=== PATIENT | male | born 1955 | race Caucasian/White ===

== ENCOUNTER → 2020-06-10 09:11 | Outpatient (CLI) | payer MEDICARE, OTHER, SELFPAY ==
--- NOTE | 2020-06-10 09:19 | DI.RAD.S_ITS ---
PROCEDURE: XR LUMBAR SPINE MIN 4V INDICATIONS: Hip pain TECHNIQUE: 5 views of the lumbar spine were acquired. COMPARISON: [facility], CT, CT ABDOMEN PELVIS WITH CONTRAST, 04/28/2017, 8:18. FINDINGS: Bones: Mild T12 anterior wedging appearance which is chronic. The remaining vertebral body heights preserved. Multilevel degenerative endplate sclerosis and spurring. Diffuse facet arthropathy. Grade 1 retrolisthesis of L1 on L2 and L2 on L3. There is mild narrowing of the lower thoracic disc spaces. The lumbar disc spaces appear grossly preserved except for mild narrowing at L1-L2. Soft tissues: Overlying bowel gas pattern is normal. No suspicious soft tissue calcifications. Oblique images: No pars defects. IMPRESSION: Mild lumbar spondylosis and facet arthropathy Multilevel spondylolisthesis as above. Dictated by: King Kerns M.D. on 06/10/2020 at 9:58 Approved by: King Kerns M.D. on 06/10/2020 at 10:00
--- NOTE | 2020-06-10 09:19 | DI.RAD.S_ITS ---
PROCEDURE: XR HIP W PEL IF DONE LT MIN 4V INDICATIONS: Hip pain TECHNIQUE: AP pelvis with lateral view(s) of the left and right hip(s). COMPARISON: None. FINDINGS: Bones: No fracture. Scattered degenerative subchondral sclerosis and spurring. Mild bilateral hip joint degeneration. Lower lumbar spondylosis. Soft tissues: The visualized bowel gas pattern is normal. No suspicious soft tissue calcifications. IMPRESSION: Mild bilateral hip joint degeneration. Dictated by: King Kerns M.D. on 06/10/2020 at 9:55 Approved by: King Kerns M.D. on 06/10/2020 at 9:57
== END ==
PROVIDERS: Referring Provider Physical Medicine & Rehabilitation; Visit Provider Physical Medicine & Rehabilitation
DX: M47.26 Other spondylosis with radiculopathy, lumbar region (principal); M43.16 Spondylolisthesis, lumbar region; M51.26 Other intervertebral disc displacement, lumbar region; G62.9 Polyneuropathy, unspecified; I72.2 Aneurysm of renal artery
CPT/HCPCS: 72110; 73522; 99213

== ENCOUNTER → 2020-06-25 09:05 | Outpatient (CLI) | payer MEDICARE, OTHER, SELFPAY ==
--- NOTE | 2020-06-25 09:07 | DI.MRI.S_ITS ---
PROCEDURE: MR LUMBAR SPINE WO CON INDICATIONS: right L3/4 radicu TECHNIQUE: Noncontrast sagittal T1 spin echo and T2 fast echo, sagittal STIR, axial T1 and T2 fast spin echo through the lumbar spine. In cases with scoliosis, additional coronal T2 fast spin echo may be performed. COMPARISON: [facility], CR, XR LUMBAR SPINE MIN 4V, 06/10/2020, 9:23. [facility], CT, CT ABDOMEN PELVIS WITH CONTRAST, 05/09/2020, 9:54. FINDINGS: Image quality: This examination is limited by involuntary motion artifact. Alignment and Curvature: There is normal bony alignment. Bone Marrow: Marrow is of normal overall signal. No acute vertebral body compression fractures. Spinal Cord: Conus medullaris terminates at the L1 level. Visualized cord demonstrates normal signal and size. Paraspinous Soft Tissues: No paravertebral masses. T12-L1: Normal appearance. L1-L2: Normal appearance. L2-L3: The disc height is well-preserved. Loss of disc signal is seen at this level. Mild disc bulge is seen, which is eccentric to the left. Mild facet joint hypertrophy is seen. Associated hypertrophy of the ligamentum flavum can be seen. There is mild to moderate left-sided and no significant right-sided neural foraminal narrowing seen. No significant central canal narrowing is seen. L3-L4: The disc height and disk signal are well-preserved. Mild disc bulge is seen, which is eccentric to the left. There is [id number] left-sided and minimal right-sided neural foraminal narrowing seen. No significant central canal narrowing is seen. L4-L5: The disc height is well-preserved. Loss of disc signal is seen at this level. Moderate disc bulge is seen, which is eccentric to the left. There is a mild central disc protrusion. At least moderate facet hypertrophy is seen. Associated hypertrophy of the ligamentum flavum can be seen. Moderate to severe bilateral neural foraminal narrowing can be seen, left worse than right. There is a degree of compression seen upon the exiting nerve roots. Moderate central canal narrowing is seen. L5-S1: The disc height and disc signal are relatively well preserved. Minimal to mild disc bulge is seen. There is [id number] left-sided and no right-sided neural foraminal narrowing seen. The central canal is widely patent. IMPRESSION: Lower lumbar spine degenerative changes are seen, which are worst at the L4-L5 level. Dictated by: Juan F Bates M.D. on 06/25/2020 at 9:30 Approved by: Juan F Bates M.D. on 06/25/2020 at 9:33
== END ==
PROVIDERS: PCP Internal Medicine Geriatric Medicine; Referring Provider Physical Medicine & Rehabilitation; Visit Provider Physical Medicine & Rehabilitation
DX: M47.26 Other spondylosis with radiculopathy, lumbar region (principal)
CPT/HCPCS: 72148